=== PATIENT | male | born 1960 | race Caucasian/White ===

== ENCOUNTER → 2020-05-01 | Outpatient (CLI) | payer BC ==
--- NOTE | 2020-05-02 08:43 | RAD ---
EXAM: Hand,Left 3 Views INDICATION: 59 years Male, HAND PAIN COMPARISON: None available FINDINGS: 3 views of the left hand were performed. No acute fracture is identified. No joint dislocation. Severe arthritic changes in the left hand. Varying degrees of joint space narrowing and subchondral sclerosis, including moderate to severe joint space narrowing at the metacarpophalangeal joints and at the first carpometacarpal joint. Subchondral cystic change is present, also primarily at the metacarpophalangeal joints, as well as osteophyte formation. No gross soft tissue abnormality or radiopaque foreign body. IMPRESSION: Moderate to severe arthritic changes in the left hand, primarily at the metacarpophalangeal joints and in the wrist. Electronically signed by: Lara Caldwell MD 05/02/2020 8:41 AM [facility] [[email or web address]]
== END ==
LOC: RAD 09:38
PROVIDERS: ATTEND Orthopaedic Surgery
DX: M19.042 Primary osteoarthritis, left hand (principal); M19.032 Primary osteoarthritis, left wrist